=== PATIENT | male | born 1970 | race African-American/Black ===

== ENCOUNTER 2021-05-14 12:48 | Emergency (ER) | payer BC, SELFPAY ==
[2021-05-14 12:59] VITALS: BP 131/74; PULSE 89; RESP 18; TEMP 37.1; O2SAT 100
--- NOTE | 2021-05-14 13:26 | ED.URI ---
HPI - URI/Sore Throat General Chief Complaint: Upper Respiratory Infection Stated Complaint: drainage/congestion/cough History of Present Illness HPI Narrative: Kyaw is a 51-year-old male patient who ambulated into the [facility]. Patient states he started sneezing on 05/09/2021. He stopped sneezing on 05/10/2021 and developed a sore throat. On 05/12/2021 he developed a slight cough. Patient states his main complaint is sinus congestion. Patient does have a history of asthma as a child. Patient states he has had no exposure to anyone sick. He denies any fever, body aches or any other symptoms MD elicited complaint: nasal congestion Related Data Allergies Allergy/AdvReac Type Severity Reaction Status Date / Time iodine Allergy Unknown Unknown Verified 05/14/21 12:59 shellfish derived Allergy Unknown Unknown Verified 05/14/21 12:59 SEAFOOD Allergy Unknown Unknown Uncoded 05/14/21 12:59 Review of Systems Review of Systems: CONSTITUTIONAL: Denies body aches, fever, chills, or sweats. EYES: Denies visual changes, redness, or discharge. ENT: +rhinorrhea,+ congestion, +sore throat, - otalgia. CARDIOVASCULAR: Denies chest pain, palpitations, or edema. RESPIRATORY: Denies cough or dyspnea. GASTROINTESTINAL: Denies abdominal pain, nausea, vomiting, or diarrhea. GENITOURINARY: Denies dysuria or hematuria. SKIN: Denies rash, itching, or wounds. MUSCULOSKELETAL: Denies back pain, joint pain, or myalgia. NEUROLOGIC: Denies headache, numbness, tingling, or weakness. PSYCH: Denies depression or anxiety. All systems reviewed & are unremarkable except as noted in HPI and below PMFSH Past Medical History Medical History BMI 26.0-26.9,adult Bradycardia Screening for lipid disorders Screening for prostate cancer Family History Family History Grandparent Hypertension Family history of lung cancer Social History Social History Smoking status: Never smoker Alcohol intake: current Exam Narrative: GENERAL: Well-appearing, well-nourished, and in no acute distress. HEAD: Normocephalic, atraumatic. EYES: EOMI. No redness or drainage. Conjunctivae normal. ENT: Mucous membranes pink and moist. Nasal membranes are erythema tests with clear nasal discharge. Bilateral TMs are dull with moderate amount of fluid no erythema. Posterior pharynx is erythemic with moderate edema and postnasal drainage noted. N Uvula midline. NECK: Normal AROM. Supple. No lymphadenopathy. CHEST: No respiratory distress. Clear to auscultation. H MUSCULOSKELETAL: No bony tenderness. EXTREMITIES: Normal range of motion. No edema. SKIN: Warm, dry, no rash. Capillary refill normal. Normal skin turgor. NEURO: No focal deficits. Alert and oriented x3. Gait steady. PSYCH: Normal affect. No signs of depression or anxiety. Course Vital Signs Vital signs: Vital Signs Temperature 37.1 C 05/14/21 12:59 Pulse Rate 89 05/14/21 12:59 Respiratory Rate 18 05/14/21 12:59 Blood Pressure 131/74 05/14/21 12:59 Pulse Oximetry 100 05/14/21 12:59 Temperature 37.1 C 05/14/21 12:59 Pulse Rate 89 05/14/21 12:59 Respiratory Rate 18 05/14/21 12:59 Blood Pressure 131/74 05/14/21 12:59 Pulse Oximetry 100 05/14/21 12:59 MDM - URI/Sore Throat MDM Narrative Medical decision making narrative: Patient has had symptoms for 5 days. Patient denies any exposure. Patient denies any fever, chills, or body aches. Patient will be diagnosed with a viral illness. Patient will be given prednisone and instructed to take a Sudafed-based cold medicine such as Claritin-D or Zyrtec-D. Patient can use a nighttime cold medicine. Follow-up with his primary care physician in 7 to 10 days for continued symptoms follow-up sooner for worsening of symptoms. Differential
== END 2021-05-14 13:31 | disposition home or self-care (01) ==
PROVIDERS: Emergency Provider Nurse Practitioner Family; PCP Family Medicine
DX: J06.9 Acute upper respiratory infection, unspecified (principal)
CPT/HCPCS: 99213; G0463

== ENCOUNTER 2023-02-28 03:54 | Day surgery (SDC) | payer BC, SELFPAY ==
[2023-02-21 11:01] VITALS: BMI 24.3
[2023-02-28 06:56] VITALS: BP 136/78; PULSE 63; RESP 18; TEMP 36.9; O2SAT 100
[2023-02-28] MEDS: LACTATED RINGERS 1,000 ML 150 ML IV CONT (07:03)
--- NOTE | 2023-02-28 07:48 | PM.HPGS ---
History of Present Illness History of Present Illness Consent: Risks, benefits, and alternatives have been discussed and questions answered. Patient agrees to proceed with procedure. Chief complaint: neoplasm screening Narrative: Kyaw Diez is a 52 year old male here for first screening colonoscopy Review of Systems Constitutional: Constitutional: Denies headache(s) and Denies weakness Eyes: Eyes: Denies blurry vision ENT: Reports Normal hearing present, Denies headache(s) and Denies neck pain Cardiovascular: Cardiovascular: Denies chest pain and Denies dyspnea Respiratory: Respiratory: Denies dyspnea Gastrointestinal: Gastrointestinal: Reports no additional gastrointestinal complaints Genitourinary: Genitourinary: Denies dysuria Musculoskeletal: Musculoskeletal: Denies neck pain Integumentary/Breasts: Skin/Breast: Denies dry skin Neurologic: Reports Normal hearing present, Denies headache(s) and Denies weakness Psychiatric: Psychiatric: Denies anxiety Endocrine: Endocrine: Denies change in body appearance Hematologic/Lymphatic: Hematologic/Lymphatic: Denies easy bleeding Allergic/Immunologic: Allergic/Immunologic: Denies urticaria [facility] Past Medical History Medical History (Updated 03/31/22 @ 11:27 by Kina Toussaint) BMI 25.0-25.9,adult BMI 26.0-26.9,adult Bradycardia Screening for lipid disorders Screening for prostate cancer Family History Family History Grandparent Hypertension Family history of lung cancer Social History Social History (Updated 03/31/22 @ 11:16 by Kina Toussaint) Smoking status: Never smoker Alcohol intake: current Substance use: never Substance use type: does not use Living arrangements: with family Spiritual care concerns: No Meds Home Medications and Allergies Home Medications Medication Instructions Recorded Confirmed Type No Home Medications 02/28/23 02/28/23 History Allergies Allergy/AdvReac Type Severity Reaction Status Date / Time Fish Containing Products Allergy Severe Anaphylaxis Verified 02/28/23 06:54 shellfish derived Allergy Severe Anaphylaxis Verified 02/28/23 06:54 iodine Allergy Unknown Anaphylaxis Verified 02/28/23 06:54 SEAFOOD Allergy Severe Anaphylaxis Uncoded 02/28/23 06:54 Vital Signs Vital Signs - 24 hr 02/28/23 06:56 Temperature 98.4 F Pulse Rate 63 Respiratory Rate 18 Blood Pressure 136/78 Pulse Oximetry 100 Oxygen Delivery Room Air Exam Const: General: comfortable and no acute distress HENMT: Face/Nose/Sinus: Normal nares present Eyes: General: appearance normal, both eyes and all related structures Neck: Neck: no JVD Resp: Auscultation: clear to auscultation bilaterally Cardio: Rate: regular rate Rhythm: regular rhythm GI: Inspection: non-distended GI Palp: Yes Soft to palpation Skin: General skin exam: normal color Neuro: General: gait normal Speech: normal speech Extrem: General: normal to inspection Psych: Mental Status: mental status grossly normal Assessment and Plan Assessment and plan (1) Screening for colon cancer: Code(s): Z12.11 - Encounter for screening for malignant neoplasm of colon Status: Acute Assessment and Plan: colonoscopy
--- NOTE | 2023-02-28 07:50 | WPDANESEPPF ---
Anes - Initial Pre Proc Eval Procedure: Operation Date: 02/28/23 08:00 Proposed Procedures p Screening Colonoscopy - Jarad Kearns MD Date/Time: 02/28/23 07:50 Surgeon: Jarad Kearns MD Pre Op Diagnosis: neoplasm screening Patient Data Age: 52 Gender: M Height: 1.87 m Weight: 83.8 kg Last Vital Signs Temp 98.4 F 02/28/23 06:56 Pulse 63 02/28/23 06:56 Resp 18 02/28/23 06:56 BP 136/78 02/28/23 06:56 Pulse Ox 100 02/28/23 06:56 O2 Del Method Room Air 02/28/23 06:56 Allergies Allergy/AdvReac Type Severity Reaction Status Date / Time Fish Containing Products Allergy Severe Anaphylaxis Verified 02/28/23 06:54 shellfish derived Allergy Severe Anaphylaxis Verified 02/28/23 06:54 iodine Allergy Unknown Anaphylaxis Verified 02/28/23 06:54 SEAFOOD Allergy Severe Anaphylaxis Uncoded 02/28/23 06:54 Home Medications Medication Instructions Recorded Confirmed Type No Home Medications 02/28/23 02/28/23 History Patient hx anesthesia problems: none Family hx anesthesia problems: none Results Review: All pre-operative results and documents have been reviewed as part of the pre-operative evaluation. [facility] Past Medical History Medical History (Updated 03/31/22 @ 11:27 by Kina Toussaint) BMI 25.0-25.9,adult BMI 26.0-26.9,adult Bradycardia Screening for lipid disorders Screening for prostate cancer Family History Family History Grandparent Hypertension Family history of lung cancer Social History Social History (Updated 03/31/22 @ 11:16 by Kina Toussaint) Smoking status: Never smoker Alcohol intake: current Substance use: never Substance use type: does not use Living arrangements: with family Spiritual care concerns: No Anes - Eval Final PreProcedure Day of Procedure 02/28/23 07:50 Patient weight: normal Heart: regular rate and rhythm Lungs: clear to auscultation Airway: Mallampati scale class II Neurological: alert and oriented Last oral intake: >/= 8 hours ASA classification: II Emergent: no Anesthetic plan: proceed Anesthesia type and monitoring: general GIVS and standard monitoring Results Review: All pre-operative results and documents have been reviewed as part of the pre-operative evaluation. Informed Consent: The patient's anesthetic plan and its attendant risks and benefits were discussed with the patient/family/POA. Questions were solicited and answers provided to the satisfaction of the patient/family/POA.
[2023-02-28 08:08] VITALS: BP 125/75; PULSE 74; RESP 22; O2SAT 100
[2023-02-28 08:18] VITALS: BP 125/84; PULSE 66; RESP 15; O2SAT 100
[2023-02-28 08:28] VITALS: BP 132/99; PULSE 59; RESP 18; O2SAT 100
== END 2023-02-28 08:48 | disposition home or self-care (01) ==
PROVIDERS: PCP Family Medicine; Visit Provider Internal Medicine Gastroenterology
PROC: 0DJD8ZZ Inspection of Lower Intestinal Tract, Via Natural or Artificial Opening Endoscopic (ICD-10-PCS; CPT 45378; principal; 2023-02-28 08:00)
DX: Z12.11 Encounter for screening for malignant neoplasm of colon (principal)
CPT/HCPCS: 45378; J2704; J7120